=== PATIENT | male | born 1955 | race Caucasian/White ===

== ENCOUNTER 2019-08-01 12:07 | Day surgery (SDC) | payer BC ==
[~2019-08-01] VITALS: Ht 182.9 cm; Wt 87.5 kg
[~2019-08-01 12:07] MED LIST: Bystolic5 MG PO; HYDR1TAB94 PO; LOSA50 PO; OMEPRAZOLE MAGN20 MG PO; ROSU5 PO; Robaxin750 MG; SOMA350 MG PO
--- NOTE | 2019-08-01 13:23 | NUR ---
08/01/19 1323 Sherin Lamb PT NOTIFIED OF DELAY. PT RESTING COMFORTABLY IN PRE-OP, AT BEDSIDE. CALL LIGHT WITHIN REACH, DENIES NEEDS AT THIS TIME.
--- NOTE | 2019-08-01 15:55 | NUR ---
08/01/19 9039 Pili Day PT. DENIES PAIN OR NAUSEA. PT. ABLE TO FEEL TOUCH TO FINGERS. GOOD CAP REFILL ON FINGERS. SLING INTACT. POLAR SHERRY INTACT.
--- NOTE | 2019-08-01 16:50 | NUR ---
08/01/19 1783 Kelly Rajput REHABILITATION PROTOCOL PAMPHLET FOR REGENETEN PARTIAL THICKNESS TEARS WITHOUT REPAIR IMPLANT INSERTED REVIEWED AND GIVEN TO PT WITH D/C INSTRUCTIONS.
== END 2019-08-01 17:11 | disposition home or self-care (01) ==
LOC: ORSCSDS 12:07
PROVIDERS: Orthopaedic Surgery
PROC: 0LQ14ZZ Repair Right Shoulder Tendon, Percutaneous Endoscopic Approach (ICD-10-PCS; principal; 2019-08-01 13:30)
PROC: 0RNJ4ZZ Release Right Shoulder Joint, Percutaneous Endoscopic Approach (ICD-10-PCS; principal; 2019-08-01 13:30)
PROC: 0LS14ZZ Reposition Right Shoulder Tendon, Percutaneous Endoscopic Approach (ICD-10-PCS; principal; 2019-08-01 13:30)
DX: M75.111 Incomplete rotator cuff tear or rupture of right shoulder, not specified as traumatic (principal); M75.21 Bicipital tendinitis, right shoulder; M75.41 Impingement syndrome of right shoulder; I10 Essential (primary) hypertension; K21.9 Gastro-esophageal reflux disease without esophagitis; Z79.899 Other long term (current) drug therapy
CPT/HCPCS: C1713; J0171; J0690; J1100; J1885; J2250; J2405; J2704; J2710; J3010; J7120

== ENCOUNTER 2020-06-28 10:54 | Emergency (ER) | payer BC ==
[~2020-06-28] VITALS: Ht 182.9 cm; Wt 90.7 kg
[2020-06-28 12:36] LABS: BASOPHILS ABSOLUTE AUTO 0.05 K/mm3 (0.00-0.23); BASOPHILS PERCENT AUTO 1 % (0-2); EOSINOPHILS ABSOLUTE AUTO 0.05 K/mm3 (0.00-0.68); EOSINOPHILS PERCENT AUTO 1 % (0-6); Hematocrit 42.5 % (37.0-53.0); Hemoglobin 14.7 g/dL (13.5-17.5); IMMATURE GRAN ABSOLUTE AUTO 0.02 K/mm3 (0.00-0.10); IMMATURE GRAN PERCENT AUTO 0 % (0-1); LYMPHOCYTES ABSOLUTE AUTO 2.97 K/mm3 (0.84-5.20); LYMPHOCYTES PERCENT AUTO 27 % (21-46); MONOCYTES ABSOLUTE AUTO 0.92 K/mm3 (0.16-1.47); MONOCYTES PERCENT AUTO 8 % (4-13); Mean Corpuscular HGB 32.7 pg (26.0-34.0); Mean Corpuscular HGB Conc 34.6 g/dL (31.5-36.5); Mean Corpuscular Volume 95 fL (80-100); NEUTROPHILS ABSOLUTE AUTO 7.07 K/mm3 (1.96-9.15); NEUTROPHILS PERCENT AUTO 64 % (41-73); Platelet Count 259 K/mm3 (150-400); RDW Coefficient Variation 11.9 % (11.7-14.2); RDW Standard Deviation 41.3 fL (35.1-46.3); Red Blood Cell Count 4.49 M/mm3 (4.30-5.90); White Blood Cell Count 11.08 K/mm3 (4.00-11.30)
[2020-06-28 12:50] LABS: Alanine Aminotransfer (ALT/SGP 33 U/L (12-78); Albumin, Blood 3.9 g/dL (3.4-5.0); Alk Phos 80 U/L (50-136); Anion Gap 6 mmol/L (6-16); Aspartate Aminotrans (AST/SGOT 16 U/L (12-37); Bilirubin, Total 0.9 mg/dL (0.1-1.0); Blood Urea Nitrogen 14 mg/dL (8-24); Bun/Creatinine Ratio 12.5 (12.0-20.0); CO2, Blood 28 mmol/L (21-32); Calcium, Blood 8.8 mg/dL (8.5-10.1); Chloride, Blood 105 mmol/L (98-108); Creatinine, Blood 1.12 mg/dL (0.60-1.20); Glomerular Filtration Rate >60 (60-); Glucose, Blood 105 mg/dL (70-99); Sodium, Blood 139 mmol/L (136-145); Total Protein, Blood 7.9 g/dL (6.4-8.2)
[2020-06-28] MEDS ORDERED: TAMS.4ER PO (14:09)
[2020-06-28] MEDS ORDERED: HYDCOR2.5C PR (14:09)
[2020-06-28] MEDS ORDERED: DOC250 PO (14:09)
[2020-06-28 14:26] LABS: Source, Urine Clean Catch
[2020-06-28 14:35] LABS: Bilirubin, Urine Neg (Neg); Blood, Urine Neg (Neg); Glucose Qualitative, Urine Neg (Neg); Ketones, Urine Neg (Neg); Leukocyte Esterase, Urine Neg (Neg); Nitrite, Urine Neg (Neg); Protein, Urine Neg (Neg); Specific Gravity, Urine 1.005 (1.003-1.022); Urobilinogen, Urine NORM (Normal)
[2020-06-28 14:36] LABS: Appearance, Urine Clear (Clear); Color, Urine Yellow (P-Yellow)
== END 2020-06-28 15:03 | disposition home or self-care (01) ==
LOC: ER 10:54
PROVIDERS: Emergency Medicine
DX: K62.89 Other specified diseases of anus and rectum (principal); N40.0 Benign prostatic hyperplasia without lower urinary tract symptoms; I10 Essential (primary) hypertension; Z79.899 Other long term (current) drug therapy; Z87.891 Personal history of nicotine dependence
CPT/HCPCS: 36415; 51798; 74177; 80053; 81003; 85025; 96374; 96375; 99283-25; J2405; J3010; Q9967

== ENCOUNTER 2020-07-01 02:51 | Emergency (ER) | payer BC ==
[~2020-07-01] VITALS: Ht 182.9 cm; Wt 90.7 kg
[~2020-07-01 02:51] MED LIST changes: +DOC250 PO; +HYDCOR2.5C PR; +TAMS.4ER PO
[2020-07-01] MEDS ORDERED: Bactrim Ds Tab1 EACH PO (05:54)
[2020-07-01] MEDS ORDERED: AMOCLA875 PO (05:54)
== END 2020-07-01 06:43 | disposition home or self-care (01) ==
LOC: ER 02:51
DX: K61.1 Rectal abscess (principal); I10 Essential (primary) hypertension; Z87.891 Personal history of nicotine dependence
CPT/HCPCS: 46050; 96365-59; 96375-59; 99282-25; A9270-GY; J1170; J2405; J2543

== ENCOUNTER 2020-07-03 08:36 | Emergency (ER) | payer BC ==
[~2020-07-03] VITALS: Ht 182.9 cm; Wt 90.7 kg
[~2020-07-03 08:36] MED LIST changes: +AMOCLA875 PO; +Bactrim Ds Tab1 EACH PO
== END 2020-07-03 09:46 | disposition home or self-care (01) ==
LOC: ER 08:36
DX: Z48.01 Encounter for change or removal of surgical wound dressing (principal); K61.1 Rectal abscess; I10 Essential (primary) hypertension; K21.9 Gastro-esophageal reflux disease without esophagitis; Z79.899 Other long term (current) drug therapy; Z87.891 Personal history of nicotine dependence
CPT/HCPCS: 99282